=== PATIENT | female | born 1990 | race Caucasian/White ===

== ENCOUNTER 2022-01-08 08:51 | Day surgery (SDC) | payer BC, OTHER ==
[~2022-01-08 08:51] MED LIST: Lactated Ringers 1,000 ML IV SCH; Sodium Chloride 0.9% 10 ML Syringe FLUSH PRN; Sodium Chloride 0.9% 2.5 ML Syringe FLUSH PRN; Sodium Chloride 0.9% 20 ML SDV IV PRN
[2022-01-08] MEDS ORDERED: fentaNYL 100 MCG/2 ML SDV IVPUSH PRN (09:04)
[2022-01-08] MEDS ORDERED: Ondansetron 4 MG/2 ML SDV IVPUSH PRN (09:04)
[2022-01-08] MEDS ORDERED: Metoclopramide 10 MG/2 ML SDV IVPUSH PRN (09:04)
[2022-01-08] MEDS ORDERED: Naloxone 0.4 MG/ML SDV IVPUSH PRN (09:04)
[2022-01-08] MEDS ORDERED: HYDROmorphone 1 MG/ML Syringe IVPUSH PRN (09:04)
[2022-01-08] MEDS ORDERED: Albuterol 0.083% 2.5 MG/3 ML Neb Soln NEB PRN (09:04)
[2022-01-08] MEDS ORDERED: Propofol 200 MG/20 ML SDV ONE ×2 (09:22→10:57)
[2022-01-08] MEDS ORDERED: Ketamine HCL/NACL, ISO-OSM 50 MG/5 ML Syringe ONE (09:23)
[2022-01-08] MEDS ORDERED: fentaNYL 250 MCG/5 ML SDV ONE (09:23)
[2022-01-08] MEDS ORDERED: Midazolam 1 MG/ML 2 ML SDV ONE (09:23)
== END 2022-01-08 12:20 | disposition home or self-care (01) ==
LOC: MW.SDS 08:51
PROVIDERS: ATTEND Obstetrics & Gynecology
DX: N84.0 Polyp of corpus uteri (principal); Z90.89 Acquired absence of other organs; E66.9 Obesity, unspecified; Z88.0 Allergy status to penicillin; Z68.31 Body mass index [BMI] 31.0-31.9, adult
CPT/HCPCS: 36415; 58558; 84703; 85027; J0131; J2250; J2704; J3010; J7120; 00952